=== PATIENT | female | born 1955 | race Caucasian/White ===

== ENCOUNTER 2023-07-22 06:34 | Day surgery (SDC) | payer MEDICARE, OTHER, SELFPAY ==
[2023-07-22] VITALS (12 sets, daily range): BP systolic 104–159; BP diastolic 57–122; BMI 30.9
[2023-07-22] MEDS: NORMOSOL-R 1000 IV (11:40)
[2023-07-22] MEDS: MOBIC 15 MG PO (12:22)
[2023-07-22] MEDS: HEPARIN 5000 UNITS SC (12:22)
[2023-07-22] MEDS: TYLENOL 1000 MG PO (12:22)
[2023-07-22] MEDS: NEURONTIN 300 MG PO (13:23)
[2023-07-22] MEDS: DILAUDID 0.25 MG IV (16:47)
[2023-07-22] MEDS: TYLENOL 650 MG PO (19:49)
== END 2023-07-22 20:00 | disposition home or self-care (01) ==
LOC: SDS 06:34
PROVIDERS: ATTENDING PHYSICIAN Obstetrics & Gynecology Gynecologic Oncology
DX: D25.9 Leiomyoma of uterus, unspecified (principal); N83.209 Unspecified ovarian cyst, unspecified side; N81.4 Uterovaginal prolapse, unspecified; N88.2 Stricture and stenosis of cervix uteri; N94.89 Other specified conditions associated with female genital organs and menstrual cycle
CPT/HCPCS: 57425; 58571; 88307; 88332; 86850; 86900; 86901; 88112; 88331